=== PATIENT | male | born 1985 | race American Indian/Alaskan Native ===

== ENCOUNTER 2017-04-12 17:36 | Emergency (ER) | payer BC ==
--- NOTE | 2017-04-12 19:24 | Emergency Department Report ---
ED ENT HPI - General Chief complaint: Dental/Oral Stated complaint: ABCESS ,TOOTHACHE,SORE THROAT Time Seen by Provider: 04/12/17 19:14 Source: patient Mode of arrival: Ambulatory Limitations: No Limitations - History of Present Illness MD complaint: tooth pain -: days(s) (2 days) Quality: stabbing Worsens with: none Context- Dental: history of dental caries Associated Symptoms: toothache - Related Data Allergies Allergy/AdvReac Type Severity Reaction Status Date / Time amoxicillin Allergy Angioedema Verified 04/12/17 17:42 ampicillin Allergy Angioedema Verified 04/12/17 17:42 Penicillins Allergy Angioedema Verified 04/12/17 17:42 ED Dental HPI - General Chief complaint: Dental/Oral Stated complaint: ABCESS ,TOOTHACHE,SORE THROAT Time Seen by Provider: 04/12/17 19:14 Source: patient Mode of arrival: Ambulatory Limitations: No Limitations - Related Data Allergies Allergy/AdvReac Type Severity Reaction Status Date / Time amoxicillin Allergy Angioedema Verified 04/12/17 17:42 ampicillin Allergy Angioedema Verified 04/12/17 17:42 Penicillins Allergy Angioedema Verified 04/12/17 17:42 ED Review of Systems ROS: Stated complaint: ABCESS ,TOOTHACHE,SORE THROAT Other details as noted in HPI Comment: All other systems reviewed and negative Constitutional: denies: chills, fever Respiratory: denies: cough, shortness of breath, SOB with exertion Cardiovascular: denies: chest pain, palpitations Gastrointestinal: denies: abdominal pain, nausea, vomiting, diarrhea ED Past Medical Hx - Past Medical History Previous Medical History?: No - Surgical History Past Surgical History?: Yes Additional Surgical History: tonsillectomy - Social History Smoking Status: Light Tobacco Smoker Substance Use Type: None ED Physical Exam - General Limitations: No Limitations General appearance: alert, in no apparent distress - Head Head exam: Present: atraumatic - ENT ENT exam: Present: other (dental caries) - Neck Neck exam: Present: normal inspection, full ROM. Absent: tenderness, meningismus, lymphadenopathy, thyromegaly - Respiratory Respiratory exam: Present: normal lung sounds bilaterally - Cardiovascular Cardiovascular Exam: Present: regular rate, normal rhythm, normal heart sounds ED Course Vital Signs 04/12/17 17:42 Temperature 98.5 F Respiratory 18 Rate Critical care attestation.: If time is entered above; I have spent that time in minutes in the direct care of this critically ill patient, excluding procedure time. ED Disposition Clinical Impression: Dental caries Disposition: DC TO HOME OR SELFCARE Is pt being admited?: No Condition: Stable Instructions: Dental Caries (ED)
== END 2017-04-12 20:03 | disposition home or self-care (01) ==
LOC: ED 17:36
DX: K02.9 Dental caries, unspecified (principal); F17.200 Nicotine dependence, unspecified, uncomplicated; Z88.0 Allergy status to penicillin; Z88.1 Allergy status to other antibiotic agents
CPT/HCPCS: 99282